=== PATIENT | male | born 1970 | race Caucasian/White ===

== ENCOUNTER 2017-03-22 18:15 | Emergency (ER) | payer SELFPAY ==
[2017-03-22] MEDS ORDERED: Ketorolac Tromethamine 30 MG/ML VIAL ONE (18:38)
[2017-03-22] MEDS ORDERED: Sodium Chloride 0.9% 100 ML ONE (18:43)
[2017-03-22] MEDS ORDERED: Sulfameth/Trimethoprim DS 800-160mg TAB ONE (18:43)
[2017-03-22] MEDS ORDERED: cefTRIAXone\\ROCEPHIN 1 GM VIAL ONE (18:43)
[2017-03-22 19:02] LABS: Band 2 % (5-11); Hemoglobin 16.2 g/dL (14.0-18.0); Lymphocytes 6 % (21-51); MDiff Complete? YES; Mean Corpuscular HGB CONC 33.7 g/dL (32.0-36.0); Mean Corpuscular Hemoglobin 30.4 pg (27.0-31.0); Mean Corpuscular Volume 90.2 fl (80.0-94.0); Mean Platelet Volume 10.4 fL (7.4-10.4); Monocytes 4 % (0-10); Neutrophil 88 % (42-75); Platelet Count 172 thou/uL (130-400); RBC Distribution Width 13.3 % (11.5-14.5); Red Blood Cell (RBC) Count 5.34 mill/uL (4.70-6.10); White Blood Cell (WBC) Count 23.1 thou/uL (4.8-10.8)
[2017-03-22 19:09] LABS: ALT (SGPT) 57 U/L (8-55); AST (SGOT) 25 U/L (5-34); Albumin 3.9 g/dL (3.5-5.0); Alkaline Phosphatase 89 U/L (40-150); Anion Gap 15 mmol/L (10-20); BUN (Urea Nitrogen) 11 mg/dL (8.9-20.6); Bilirubin, Total 0.8 mg/dL (0.2-1.2); Calc. Creatinine Clearance 0 mL/min (70-130); Calcium 9.9 mg/dL (7.8-10.44); Carbon Dioxide 24 mmol/L (22-29); Chloride 100 mmol/L (98-107); Estimated GFR-MDRD 67; Globulin 4.1 g/dL (2.4-3.5); Glucose 85 mg/dL (70-105); Potassium 3.4 mmol/L (3.5-5.1); Sodium 136 mmol/L (136-145)
== END 2017-03-22 19:29 | disposition home or self-care (01) ==
LOC: BURERS 18:19
DX: L03.115 Cellulitis of right lower limb (principal); I25.2 Old myocardial infarction
CPT/HCPCS: 80053; 83605; 85025; 87040; 96365; 96375; J0696; J1885; J7050

== ENCOUNTER 2020-03-31 20:26 | Emergency (ER) | payer MEDICAID, OTHER ==
[2020-03-31] MEDS ORDERED: Aspirin Chewable 81 MG TAB ONE (20:32)
[2020-03-31] MEDS ORDERED: Nitroglycerin 0.4 MG TAB 1 EACH ONE (20:32)
[2020-03-31] MEDS ORDERED: Nitroglycerin 50 MG/250 ML BOT 250 ML ONE (20:41)
[2020-03-31] MEDS ORDERED: Ondansetron PF 4 MG/2 ML Vial ONE (20:47)
[2020-03-31 20:48] LABS: #Basophils 0.2 thou/uL (0.0-0.2); #Eosinphils 0.1 thou/uL (0.0-0.7); #Lymphocytes 2.2 thou/uL (1.20-3.40); #Monocytes 0.8 thou/uL (0.11-0.59); #Neutrophils 6.1 thou/uL (1.40-6.50); %Basophils 1.6 % (0.0-1.0); %Eosinophils 1.1 % (0.0-10.0); %Lymphocytes 23.7 % (21.0-51.0); %Monocytes 8.9 % (0.0-10.0); %Neutrophils 64.7 % (42.0-75.0); Hemoglobin 17.7 g/dL (14.0-18.0); Mean Corpuscular HGB CONC 30.5 g/dL (32.0-36.0); Mean Corpuscular Hemoglobin 29.4 pg (27.0-31.0); Mean Corpuscular Volume 96.6 fL (78.0-98.0); Mean Platelet Volume 8.8 fL (7.4-10.4); Platelet Count 232 thou/uL (130-400); RBC Distribution Width 12.8 % (11.5-14.5); Red Blood Cell (RBC) Count 6.01 mill/uL (4.70-6.10); White Blood Cell (WBC) Count 9.4 thou/uL (4.8-10.8)
[2020-03-31] MEDS ORDERED: Fentanyl 100 MCG/2 ML VIAL ONE (20:56)
[2020-03-31 21:01] LABS: ALT (SGPT) 67 U/L (8-55); AST (SGOT) 34 U/L (5-34); Albumin 4.4 g/dL (3.5-5.0); Alkaline Phosphatase 113 U/L (40-110); Anion Gap 16 mmol/L (10-20); BUN (Urea Nitrogen) 11 mg/dL (8.9-20.6); Bilirubin, Total 0.6 mg/dL (0.2-1.2); Calc. Creatinine Clearance 0 mL/min (70-130); Calcium 9.4 mg/dL (7.8-10.44); Carbon Dioxide 23 mmol/L (22-29); Chloride 105 mmol/L (98-107); Estimated GFR-MDRD 55; Globulin 3.4 g/dL (2.4-3.5); Glucose 132 mg/dL (70-105); Potassium 3.8 mmol/L (3.5-5.1); Protein, Total 7.8 g/dL (6.0-8.3); Sodium 140 mmol/L (136-145)
--- NOTE | 2020-04-01 08:50 | RAD ---
PORTABLE CHEST: DATE: 03/31/2020. FINDINGS: An AP portable film at 2037 shows mild cardiomegaly but no congestive change or pleural effusion. Th e lungs are clear, though the left base is not seen optimally. IMPRESSION: No acute findings. Mild cardiomegaly. POS: HOME
== END 2020-03-31 21:02 | disposition short-term general hospital (02) ==
LOC: BURERS 20:26
DX: I21.9 Acute myocardial infarction, unspecified (principal); R11.0 Nausea
CPT/HCPCS: 71045; 80053; 82553; 84484; 85025; 93005; 94760; 96374; 96375; J2405; J3010

== ENCOUNTER 2022-06-03 20:12 | Emergency (ER) | payer OTHER ==
[2022-06-03] MEDS ORDERED: Carbamide Peroxide 6.5% Otic Drops 15 ml Bottle ONE (20:38)
== END 2022-06-03 21:20 | disposition home or self-care (01) ==
LOC: BURERS 20:12
DX: H61.22 Impacted cerumen, left ear (principal); I10 Essential (primary) hypertension; I25.2 Old myocardial infarction; Z79.899 Other long term (current) drug therapy; Z79.82 Long term (current) use of aspirin
CPT/HCPCS: 69209